=== PATIENT | female | born 1980 | race Caucasian/White ===

== ENCOUNTER 2016-08-30 09:52 | Emergency (ER) | payer MEDICAID, SELFPAY ==
[~2016-08-30] VITALS: Ht 172.7 cm; Wt 81.6 kg
[2016-08-30 09:52] VITALS: BP 152/78
[~2016-08-30 09:52] MED LIST: CIPR500T3 PO; IBUP80TA PO; NIFE15CA PO; PRIL20CA9 PO; TYLE325T5 PO
--- NOTE | 2016-08-30 10:41 | REP ---
LEFT FOOT SERIES: Four views. HISTORY: 5th toe injury. FINDINGS: Four views of the left foot are obtained. There is a large plantar calcaneal spur. Overall mineralization pattern is normal. There is soft tissue swelling about the 5th toe and there is a nondisplaced fracture involving the middle phalanx. No other fracture is seen. IMPRESSION: Nondisplaced fracture middle phalanx left 5th toe. Plantar heel spur. Signed by Michael Patel MD 08/30/2016 01:39 P
== END 2016-08-30 10:41 | disposition home or self-care (01) ==
LOC: M ED 10:32
DX: S92.525B Nondisplaced fracture of middle phalanx of left lesser toe(s), initial encounter for open fracture (principal); W22.8XXA Striking against or struck by other objects, initial encounter; Y92.019 Unspecified place in single-family (private) house as the place of occurrence of the external cause; Y93.89 Activity, other specified; Y99.8 Other external cause status; Z88.8 Allergy status to other drugs, medicaments and biological substances; Z88.0 Allergy status to penicillin

== ENCOUNTER → 2018-03-20 | Outpatient (CLI) | payer OTHER | LOC: M OUTALCOH 09:46 | DX: Z13.9 Encounter for screening, unspecified (principal); F10.20 Alcohol dependence, uncomplicated ==

== ENCOUNTER 2018-03-29 08:46 | Outpatient (RCR) | payer OTHER | END 2018-04-12 | LOC: M OUTALCOH 08:46 | DX: F10.20 Alcohol dependence, uncomplicated (principal); Z72.0 Tobacco use ==

== ENCOUNTER 2018-05-09 11:00 | Outpatient (RCR) | payer OTHER | END 2018-05-13 | LOC: M OUTALCOH 11:00 | PROVIDERS: ATTEND Psychiatry & Neurology Psychiatry | DX: F10.20 Alcohol dependence, uncomplicated (principal); Z72.0 Tobacco use ==

== ENCOUNTER 2018-05-31 13:00 | Outpatient (RCR) | payer OTHER ==
[2018-06-14] MEDS ORDERED: IRON18TA2 PO (10:12)
[2018-06-14] MEDS ORDERED: zoloft (10:12)
[2018-06-14] MEDS ORDERED: FLON1SPR NARES (10:17)
[2018-06-14] MEDS ORDERED: CEFD1CAP8 PO (10:17)
[2018-06-14] MEDS ORDERED: SUDA1TAB3 PO (10:17)
== END 2018-06-13 ==
LOC: M OUTALCOH 13:00
PROVIDERS: ATTEND Psychiatry & Neurology Psychiatry
DX: F10.20 Alcohol dependence, uncomplicated (principal); Z72.0 Tobacco use

== ENCOUNTER 2018-06-14 09:44 | Emergency (ER) | payer OTHER ==
[~2018-06-14] VITALS: Ht 172.7 cm; Wt 100.0 kg
[2018-06-14 09:45] VITALS: BP 166/100
[2018-06-14] MEDS ORDERED: IRON18TA2 PO (10:12)
[2018-06-14] MEDS ORDERED: zoloft (10:12)
[2018-06-14] MEDS ORDERED: SUDA1TAB3 PO (10:17)
[2018-06-14] MEDS ORDERED: FLON1SPR NARES (10:17)
[2018-06-14] MEDS ORDERED: CEFD1CAP8 PO (10:17)
== END 2018-06-14 10:25 | disposition home or self-care (01) ==
LOC: M ED 09:44
DX: H66.002 Acute suppurative otitis media without spontaneous rupture of ear drum, left ear (principal); Z87.891 Personal history of nicotine dependence; Z98.84 Bariatric surgery status; Z88.0 Allergy status to penicillin; Z88.8 Allergy status to other drugs, medicaments and biological substances; Z79.899 Other long term (current) drug therapy

== ENCOUNTER 2018-06-28 13:00 | Outpatient (RCR) | payer OTHER ==
[~2018-06-28 13:00] MED LIST changes: +CEFD1CAP8 PO; +FLON1SPR NARES; +IRON18TA2 PO; +SUDA1TAB3 PO; +zoloft
== END 2018-07-11 ==
LOC: M OUTALCOH 13:00
PROVIDERS: ATTEND Psychiatry & Neurology Psychiatry
DX: F10.20 Alcohol dependence, uncomplicated (principal); Z72.0 Tobacco use

== ENCOUNTER 2018-08-10 21:18 | Emergency (ER) | payer OTHER ==
[~2018-08-10] VITALS: Ht 172.7 cm; Wt 100.0 kg
[2018-08-10 21:18] VITALS: BP 181/105
[2018-08-10] MEDS ORDERED: SERT-155 (21:23)
[2018-08-10] MEDS ORDERED: VITRTAB4 PO (21:23)
== END 2018-08-10 23:08 | disposition left against medical advice (07) ==
LOC: M ED 21:18
DX: M54.5 Low back pain (principal); Z53.21 Procedure and treatment not carried out due to patient leaving prior to being seen by health care provider

== ENCOUNTER → 2019-01-17 | Outpatient (REF) | payer OTHER, SELFPAY ==
[~2019-01-17] MED LIST changes: +SERT-155; +VITRTAB4 PO
[2019-01-17 14:50] LABS: RUBELLA IgG QUALITATIVE IMMUNE (IMMUNE)
== END ==
LOC: M SFHCLERA 10:33
PROVIDERS: ATTEND Physician Assistant
DX: Z02.1 Encounter for pre-employment examination (principal)

== ENCOUNTER 2021-12-15 12:51 | Emergency (ER) | payer OTHER, SELFPAY ==
[~2021-12-15] VITALS: Ht 172.7 cm; Wt 125.5 kg
[~2021-12-15 12:51] MED LIST changes: -CEFD1CAP8 PO; +CEFD300C41 PO; -SERT-155; +SERT50TA29
[2021-12-15 14:35] VITALS: BP 133/73
== END 2021-12-15 14:41 | disposition home or self-care (01) ==
LOC: M ED 12:51
DX: S93.602A Unspecified sprain of left foot, initial encounter (principal); X50.9XXA Other and unspecified overexertion or strenuous movements or postures, initial encounter; Y99.0 Civilian activity done for income or pay; Z88.0 Allergy status to penicillin; Z88.1 Allergy status to other antibiotic agents; Z88.8 Allergy status to other drugs, medicaments and biological substances

== ENCOUNTER → 2022-06-08 | Outpatient (REF) | payer OTHER | LOC: M LAB REF 16:06 | PROVIDERS: ATTEND Physician Assistant | DX: B34.9 Viral infection, unspecified (principal) ==

== ENCOUNTER 2023-01-29 10:49 | Emergency (ER) | payer OTHER ==
[~2023-01-29] VITALS: Ht 172.7 cm; Wt 118.2 kg
[2023-01-29] MEDS ORDERED: CYAN1000VL (11:06)
[2023-01-29] MEDS ORDERED: FERR325T19 (11:06)
[2023-01-29] MEDS ORDERED: AMLO2.5T3 (11:06)
[2023-01-29] MEDS ORDERED: LOSA100T46 (11:06)
[2023-01-29] MEDS ORDERED: BUPR150T12 (11:06)
[2023-01-29] MEDS ORDERED: KETOROLAC 30 MG/ML 1ML VIAL IV ONE (12:20)
[2023-01-29] MEDS ORDERED: LOSARTAN 50MG TABLET PO ONE (12:50)
[2023-01-29 13:24] VITALS: BP 181/110
[2023-01-29] MEDS ORDERED: PERCOCET 5MG/325MG TAB PO ONE (13:30)
[2023-01-29] MEDS ORDERED: HYDR-3715 PO (15:01)
[2023-01-29 15:20] VITALS: BP 194/103; TEMP 98.5; O2SAT 97
== END 2023-01-29 15:30 | disposition home or self-care (01) ==
LOC: M ED 10:49
DX: S40.022A Contusion of left upper arm, initial encounter (principal); V49.00XA Driver injured in collision with unspecified motor vehicles in nontraffic accident, initial encounter; I10 Essential (primary) hypertension; Z79.811 Long term (current) use of aromatase inhibitors; Z79.899 Other long term (current) drug therapy; Z88.0 Allergy status to penicillin; Z88.8 Allergy status to other drugs, medicaments and biological substances
CPT/HCPCS: 70450; 72125; 73030; 73080; 73110; 73130; 80047; 84702; 96374; 99284; J1885

== ENCOUNTER → 2023-10-26 | Outpatient (REF) | payer OTHER ==
[~2023-10-26] MED LIST changes: +AMLO1TAB24; +AMLO2.5T3; +BUPR-365; +BUPR150T12; +CEFD1CAP9 PO; -CEFD300C41 PO; +CYAN1000VL; +FERR325T19; +HYDR-3715 PO; +IRON27TA2 PO; +LOSA100T46
== END ==
LOC: M LABWUC 16:27
PROVIDERS: ATTEND Physician Assistant
DX: M79.644 Pain in right finger(s) (principal)